=== PATIENT | female | born 1985 ===

== ENCOUNTER 2018-10-13 10:32 | Emergency (ER) | payer OTHER ==
[2018-10-13] MEDS: KETOROLAC 30 MG INJ IM (10:40)
[2018-10-13] MEDS: LORAZEPAM 1 MG TAB PO (11:44)
== END 2018-10-13 12:30 | disposition home or self-care (01) ==
LOC: E/R 10:32
DX: F11.10 Opioid abuse, uncomplicated (principal); S01.432A Puncture wound without foreign body of left cheek and temporomandibular area, initial encounter; Y08.89XA Assault by other specified means, initial encounter
CPT/HCPCS: 99285